=== PATIENT | male | born 1985 | race Caucasian/White ===

== ENCOUNTER → 2020-06-28 | Outpatient (CLI) | payer BC ==
--- NOTE | 2020-06-28 08:36 | US ---
EXAMINATION TYPE: US thyroid st tissue head/neck DATE OF EXAM: 06/28/2020 COMPARISON: NONE CLINICAL HISTORY: E03.9 Hypothyroidism, unspecified. Abnormal labs. GLAND SIZE: Right Lobe: 4.6 x 1.7 x 1.2 cm Overall Parenchyma: heterogenous Left Lobe: 4.5 x 1.7 x 1.3 cm Overall Parenchyma: heterogeneous Isthmus Thickness: 0.2 cm NODULES RIGHT: # of nodules measured on right: 0 LEFT: # of nodules measured on left: 0 ISTHMUS: # of nodules measured in the isthmus: 0 Bilateral neck scanned, no evidence of lymphadenopathy. IMPRESSION: 1. Normal thyroid
== END | disposition home or self-care (01) ==
LOC: RADUSWWP 07:56
PROVIDERS: ATTEND Family Medicine
DX: E03.9 Hypothyroidism, unspecified (principal)
CPT/HCPCS: 76536